=== PATIENT | male | born 1985 | race Two or more races ===

== ENCOUNTER 2025-09-08 02:37 | Inpatient (IN) | payer OTHER, SELFPAY ==
[~2025-09-08] VITALS: Ht 157.5 cm; Wt 80.0 kg
--- NOTE | 2025-09-08 02:59 | ED.PDOC ---
GI ASSESSMENT HPI Comments 40-year-old male who came to ER for generalized weakness/abdominal pain. Patient has been having recurrent episodes of epigastric abdominal pain for the past few months. Diagnosed with gastritis. pt has drinks alcohol. last drank alcohol was a week ago. Recurrence of abdominal pain with generalized weakness prompted patient to go to the ER Chief Complaint: General Weakness Time Seen by MD: 02:58 Reviewed Notes: Nurses Notes Allergies: Coded Allergies: No Known Drug Allergy (Verified Allergy, Unknown, 09/08/25) Information Source: Patient Mode of Arrival: Ambulatory Past Medical History PAST MEDICAL HISTORY: Denies Surgical History: Hernia Repair Family History Family History: Reviewed,noncontributory to illness Social History Smoker: Non-Smoker Alcohol: Occasionally Drugs: Denies Drug Use Lives In: Home Constitutional: reports: weakness; denies: chills, diaphoresis, fatigue, fever, malaise, sweats, others EENTM: denies: blurred vision, double vision, ear bleeding, ear discharge, ear drainage, ear pain, ear ringing, eye pain, eye redness, hearing loss, mouth pa in, mouth swelling, nasal discharge, nose bleeding, nose congestion, nose pain, photophobia, tearing, throat pain, throat swelling, voice changes, others Respiratory: denies: cough, hemoptysis, orthopnea, SOB at rest, shortness of breath, SOB with excertion, stridor, wheezing, others Cardiovascular: denies: chest pain, dizzy spells, diaphoresis, Dyspnea on exertion, edema, irregular heart beat, left arm pain, lightheadedness, palpitations, PND, syncope, others Gastrointestinal: reports: abdominal pain; denies: abdomen distended, blood streaked bowels, constipated, diarrhea, dysphagia, difficulty swallowing, hematemesis, melena, nausea, poor appetite, poor fluid intake, rectal bleeding, rectal pain, vomiting, others Genitourinary: denies: burning, dysuria, flank pain, frequency, hematuria, incontinence, penile discharge, penile sore, pain, testicle pain, testicle swelling, urgency, others Neurological: denies: dizziness, fainting, headache, left sided numbness, left sided weakness, numbness, paresthesia, pre-existing deficit, right sided numbness, right sided weakness, seizure, speech problems, tingling, tremors, weakness, others Musculoskeletal: denies: back pain, gout, joint pain, joint swelling, muscle pain, muscle stiffness, neck pain, others Integumetry: denies: bruises, change in color, change in hair/nails, dryness, laceration, lesions, lumps, rash, wounds, others Allergic/Immunocompromised: denies: Difficulty Healing, Frequent Infections, Hives, Itching, others Hematologic/Lymphatic: denies: anemia, blood clots, easy bleeding, easy bruising, swollen glands, others Endocrine: denies: excessive hunger, excessive sweating, excessive thirst, excessive urination, flushing, intolerance to cold, intolerance to heat, unexplained weight gain, unexplained weight loss, others Psychiatric: denies: anxiety, bipolar disorder, depression, hopeless, panic disorder, schizophrenia, sleepless, suicidal, others Physical Exam General Appearance: No Apparent Distress, Normal HEENT: Normal ENT Inspection, Pharynx Normal, TMs Normal Neck: Full Range of Motion, Non-Tender, Normal, Normal Inspection Respiratory: Chest Non-Tender, Lungs Clear, No Accessory Muscle Use, No Respira tory Distress, Normal Breath Sounds Cardiovascular: No Edema, No JVD, No Murmur, No Gallop, Normal Peripheral Pulses, Regular Rate/Rhythm Breast Exam: Deferred Gastrointestinal: Epigastric, No Organomegaly, No Pulsatile Mass, Normal Bowel Sounds, RUQ, Soft, Tenderness Genitalia: Deferred Pelvic: Deferred Rectal: Deferred Extremities: No calf tenderness, Normal capillary refill, Normal inspection, Normal range of motion, Non-tender, No pedal edema Musculoskeletal : Apperance: Normal Neurologic: Alert, anodiser II-XII nml as Tested, No Motor Deficits, Normal Affect, Normal Mood, No Sensory Deficits Cerebellar Function: Normal Reflexes: Normal Skin: Dry, Normal Color, Warm Lymphatic: No Adenopathy Was a procedure done? Was a procedure done?: No GI differential Dx Differential Diagnosis: Diverticular disease, Gastritis/PUD, Gastroenteritis, Hernia, Pancreatitis, UTI X-Ray, Labs, Meds, VS Vital Signs Date Time Temp Pulse Resp B/P (MAP) Pulse Ox O2 Delivery O2 Flow Rate FiO2 09/08/25 02:39 98.3 98 16 157/101 97 98.3 Lab Test 09/08/25 03:00 Range/Units White Blood Count Pending Red Blood Count Pending Hemoglobin Pending Hematocrit Pending Mean Corpuscular Volume Pending Mean Corpuscular Hemoglobin Pending Mean Corpuscular Hemoglobin Concent Pending Red Cell Distribution Width Pending Platelet Count Pending Mean Platelet Volume Pending Neutrophils (%) (Auto) Pending Lymphocytes (%) (Auto) Pending Monocytes (%) (Auto) Pending Basophils (%) (Auto) Pending Neutrophils # (Auto) Pending Lymphocytes # (Auto) Pending Monocytes # (Auto) Pending Sodium Level 145 136-145 mmol/L Potassium Level 3.7 3.5-5.1 mmol/L Chloride Level 102 98-107 mmol/L Carbon Dioxide Level 33 H 20-31 mmol/L Anion Gap 10 5-15 Blood Urea Nitrogen 14 9-23 mg/dL Creatinine 0.98 0.700-1.30 mg/dL Glomerular Filtration Rate Calc 101 >90 mL/min BUN/Creatinine Ratio 14.3 10.0-20.0 Serum Glucose 143 H 74-106 mg/dL Calcium Level 9.9 8.7-10.4 mg/dL Total Bilirubin 0.5 0.2-1.0 mg/dL Direct Bilirubin 0.2 <0.3 mg/dL Aspartate Amino Transferase (AST) 139 H 13-40 U/L Alanine Aminotransferase (ALT) 94 H 7-40 U/L Alkaline Phosphatase 143 H 46-116 U/L Total Protein 8.2 5.7-8.2 g/dL Albumin 4.7 3.2-4.8 g/dL Lipase Pending PROCEDURE: Gallbladder Ultrasound. Date: 09/08/2025 04:01 AM HISTORY: ruq pain COMPARISON: None TECHNIQUE: Multiple silva-scale and color flow images of the right upper quadrant were obtained. FINDINGS: Aorta and IVC: The aorta and IVC are patent and are normal in size. Pancreas: The pancreas is not well evaluated given the overlying bowel gas. Liver: The liver appears unremarkable. Gallbladder: Multiple mobile small stones are suspected in the gallbladder. There may be some sludge also in the gallbladder. No wall thickening is seen. The patient is not tender over the gallbladder. Bile ducts:The extrahepatic common bile duct measures 5 mm. Right kidney: The right kidney is normal in size. There is normal echogenicity of the right kidney and there is no evidence of hydronephrosis.Cortical thickness is well preserved. IMPRESSION: 1. Cholelithiasis without evidence of acute cholecystitis. Time of 1ST Reevaluation: 02:55 Reevaluation 1ST: Unchanged Time of 2ND Reevaluation: 04:59 Reevaluation 2ND: Resolved Patient Education/Counseling: Diagnosis, Treatment, Prognosis, Need For Follow Up Family Education/Counseling: Diagnosis, Treatment, Prognosis, Need For Follow Up Comments pt has biliary colic from cholelithiasis. he also has transaminitis and elevated AP. although his bili is not elevated, with his intractable pain, i am concerned about biliary ductal obstruction. his lipase is also mildly elevate. his WBC is elevated. i will cover him empirically for early cholecystitis. he will be admitted for further evaluation and treatments. SEPSIS Sepsis Screen Date sepsis recognized/suspect: Sep 08, 2025 Time Sepsis recognized/suspect: 242 Recent Procedure: No On Antibiotic Therapy: No Respiratory Rate >20: No Heart Rate >90: Yes Temp<36 C (96.8 F) or >38.3 C: No SBP <90 or MAP <65 mmHG: No New Acute Mental Status Change: No Is the patient on CPAP, BIPAP,: No Physician Orders Complete Blood Count (09/08/25 02:53) Basic Metabolic Panel (09/08/25 02:53) Hepatic Panel (09/08/25 02:53) Lipase (09/08/25 02:53) Gallbladder (09/08/25 02:53) Vital Signs Date Time Temp Pulse Resp B/P (MAP) Pulse Ox O2 Delivery O2 Flow Rate FiO2 09/08/25 02:39 98.3 98 16 157/101 97 98.3 Laboratory Tests Test 09/08/25 03:00 White Blood Count Pending Departure 1 Departure Time of Disposition: 05:07 Impression: Primary Impression: Cholelithiasis Additional Impressions: Biliary colic Transaminitis Intractable abdominal pain Disposition: ADMITTED INPATIENT Admit to: Med Surg Condition: Serious Discharged With: Self, Relative Critical Care Note Critical Care Time?: No Stability Stability form required: No Heart Score Heart Score: Heart Score Response (Comments) Value History N/A 0 EKG N/A 0 Age N/A 0 Risk Factors N/A 0 Troponin N/A 0 Total 0 I personally scribed for MARYANA DELEON MD ([email or web address]) on 09/08/25 at 02:59. Electronically submitted by Attila Molina ([facility]). I personally scribed for [facility]ON [facility] on 09/08/25 at 04:54. Electronically submitted by Attila Molina ([facility]). MARYANA DELEON MD Sep 08, 2025 02:59
[2025-09-08 03:27] LABS: Albumin 4.7 g/dL (3.2-4.8); Anion Gap 10 (5-15); BUN/Creatinine Ratio 14.3 (10.0-20.0); Bilirubin, Direct 0.2 mg/dL (<0.3); Bilirubin, Total 0.5 mg/dL (0.2-1.0); Blood Urea Nitrogen 14 mg/dL (9-23); Calcium 9.9 mg/dL (8.7-10.4); Chloride 102 mmol/L (98-107); Potassium 3.7 mmol/L (3.5-5.1); Total Protein 8.2 g/dL (5.7-8.2)
[2025-09-08 03:34] LABS: Alanine Aminotransferase 94 U/L (7-40); Alkaline Phosphatase 143 U/L (46-116); Carbon Dioxide 33 mmol/L (20-31); Glucose 143 mg/dL (74-106); Sodium 145 mmol/L (136-145)
[2025-09-08 03:37] LABS: Hemoglobin 15.1 g/dL (13.5-17.5); Nucleated Red Blood Cells % 0.0 %
[2025-09-08 03:41] LABS: Hematocrit 44.7 % (41.0-53.0); Mean Corpuscular Hemoglobin 29.1 pg (28.0-32.0); Mean Corpuscular Volume 85.8 fL (80.0-100.0)
[2025-09-08] MEDS: fentaNYL CITRATE 100 MCG/2 ML VL IM ONE (04:15)
--- NOTE | 2025-09-08 04:39 | DVH ---
MEDICAL RECORDS NUMBER: [id number] PROCEDURE: Gallbladder Ultrasound. Date: 09/08/2025 04:01 AM HISTORY: ruq pain COMPARISON: None TECHNIQUE: Multiple silva-scale and color flow images of the right upper quadrant were obtained. FINDINGS: Aorta and IVC: The aorta and IVC are patent and are normal in size. Pancreas: The pancreas is not well evaluated given the overlying bowel gas. Liver: The liver appears unremarkable. Gallbladder: Multiple mobile small stones are suspected in the gallbladder. There may be some sludge also in the gallbladder. No wall thickening is seen. The patient is not tender over the gallbladder. Bile ducts:The extrahepatic common bile duct measures 5 mm. Right kidney: The right kidney is normal in size. There is normal echogenicity of the right kidney and there is no evidence of hydronephrosis.Cortical thickness is well preserved. IMPRESSION: 1. Cholelithiasis without evidence of acute cholecystitis.
[2025-09-08 05:00] LABS: Lipase 63 U/L (12-53)
[2025-09-08] MEDS: ONDANSETRON ODT 4 MG TAB PO ONE (05:59)
[2025-09-08] MEDS: SODIUM CHLORIDE 0.9% 250 ML IV ONE (06:00)
[2025-09-08] MEDS: fentaNYL CITRATE 100 MCG/2 ML VL IV ONE (07:02)
[2025-09-08 08:35] VITALS: PULSE 80; RESP 18; O2SAT 99
[2025-09-08] MEDS: SODIUM CHLORIDE 0.9% 1,000 ML IV ONE (08:50)
[2025-09-08] MEDS: ONDANSETRON HCL 4 MG/2 ML VIAL IV ONE (08:50)
[2025-09-08] MEDS: MORPHINE SULFATE 4 MG/ML SYR/VIAL IV ONE (08:51)
[2025-09-08] MEDS ORDERED: ACETAMINOPHEN 325 MG TAB PO PRN (12:15)
--- NOTE | 2025-09-08 12:52 | DVH ---
CLINICAL INFORMATION: Rule out pancreatitis. No other clinical information provided. Indication for same day gallbladder ultrasound was right upper quadrant pain. TECHNIQUE: Axial CT images of the abdomen and pelvis were obtained without IV contrast. Coronal and sagittal reformatted images were obtained, reviewed, and stored. Evaluation of the parenchymal organs is limited without IV contrast. Evaluation of the bowel and mesentery is limited without oral contrast. All CT scans at this medical facility are performed using dose modulation techniques as appropriate to a performed exam including the following: Automated exposure control was utilized; adjustment of the MA and/or KV according to patient size; and use of iterative reconstruction technique. CTDIvol = 9.69 mGy DLP = 563.82 mGy-cm COMPARISON: None FINDINGS: Lung bases: Mild atelectasis in the lung bases. Liver: Grossly unremarkable in its noncontrast enhanced appearance. No abnormal density or focal lesion identified. Biliary: Partially contracted gallbladder. No definite calcified gallstones visualized on CT, although gallstones were seen on same-day ultrasound. Spleen: Unremarkable. Pancreas: Grossly unremarkable in its noncontrast enhanced appearance. No definite periappendiceal inflammatory changes are seen. Adrenal glands: Unremarkable. No mass. Kidneys: No hydronephrosis. No renal or ureteral calculi. Aorta/Vascular: No aneurysm or significant calcification. Lymph nodes: No mass or lymphadenopathy. Bowel/mesentery: No small bowel obstruction. No free air or free fluid. Appendix is visualized and appears unremarkable. Scattered colonic diverticula without adjacent inflammatory changes to suggest diverticulitis. Pelvic organs: Grossly unremarkable. Bladder: Unremarkable. No mass. Abdominal wall: No mass or hernia. Bones: No acute fracture or suspicious intraosseous lesion. IMPRESSION: 1. Partially contracted gallbladder. No definite calcified gallstones visualized on CT, although gallstones were seen on same-day ultrasound. 2. No definite peripancreatic inflammatory stranding to suggest acute pancreatitis, although correlation with clinical findings would be needed to exclude acute pancreatitis. 3. Additional nonacute findings as described above.
[2025-09-08] MEDS: SODIUM CHLORIDE 0.9% 1,000 ML IV SCH (13:11)
[2025-09-08] MEDS: MORPHINE SULFATE INJ 2 MG/ml SYRG IV PRN (13:23)
--- NOTE | 2025-09-08 13:31 | DVHHP2 ---
History of Present Illness History of Present Illness 40-year-old male who came to the ER for generalized weakness and recurrent episodes of epigastric abdominal pain over several months, previously labeled as gastritis. Today the pain became more persistent, prompting evaluation. He reports occasional alcohol use with his last drink one week ago. No vomiting today but has had intermittent nausea. No fevers or chills. No jaundice. No chest pain or shortness of breath. Ultrasound in the ED showed multiple gallstones without wall thickening and a CBD of [address] abdomen showed a partially contracted gallbladder without definite inflammatory changes. Labs significant for leukocytosis and elevated AST/ALT/ALP. Lipase is mildly elevated but not consistent with pancreatitis criteria. Pain improved slightly with ED medications but remains symptomatic. He was given ceftriaxone and metronidazole. Past Medical History: Denies Past Surgical History: Hernia repair Family History: Non-contributory Social History: Non-smoker, occasional alcohol, denies drug use, lives at home Allergies: NKDA Medications: None reported Review of Systems: Negative except as stated in HPI (weakness, abdominal pain). Denies fevers, chills, vomiting, diarrhea, chest pain, shortness of breath, dysuria, flank pain, or rash. Review of Systems Allergies: Coded Allergies: No Known Drug Allergy (Verified Allergy, Unknown, 09/08/25) Medications Current Medications Medications Dose Ordered Sig/Michael Route Start Time Stop Time Status Last Admin Dose Admin Sodium Chloride 1,000 ml @ 60 mls/hr [id number] IV 09/08/25 12:15 09/08/25 13:11 60 MLS/HR Acetaminophen 650 mg Q6HP PRN PO 09/08/25 12:15 Acetaminophen/ Hydrocodone Bitart 1 tab Q4HP PRN PO 09/08/25 12:15 Ondansetron HCl 4 mg Q4HP PRN IV 09/08/25 12:15 Morphine Sulfate 2 mg Q4HPRN PRN IV 09/08/25 12:15 09/08/25 13:23 2 MG Exam Vital Signs Vital Signs Date Time Temp Pulse Resp B/P (MAP) Pulse Ox O2 Delivery O2 Flow Rate FiO2 09/08/25 13:23 83 18 142/95 09/08/25 12:30 98.0 97 98.0 09/08/25 08:35 Room Air* 0 21 Exam General: No acute distress. HEENT: PERRLA, moist mucosa. Neck: Supple. Respiratory: Clear breath sounds, no wheezes or rales. Cardiovascular: Regular rhythm, normal rate. Abdomen: Soft, nondistended, RUQ tenderness without guarding or rebound. Bowel sounds present. Extremities: No edema. Neuro: Alert, oriented, no focal deficits. Skin: Warm, dry. Labs/Xrays Labs Test 09/08/25 03:00 Range/Units White Blood Count 19.5 H 4.4-10.8 10^3/uL Red Blood Count 5.21 4.5-5.90 10^6/uL Hemoglobin 15.1 13.5-17.5 g/dL Hematocrit 44.7 41.0-53.0 % Mean Corpuscular Volume 85.8 80.0-100.0 fL Mean Corpuscular Hemoglobin 29.1 28.0-32.0 pg Mean Corpuscular Hemoglobin Concent 33.9 32.0-36.0 g/dL Red Cell Distribution Width 13.8 11.8-14.3 % Platelet Count 480 H 140-450 10^3/uL Mean Platelet Volume 7.2 6.9-10.8 fL Neutrophils (%) (Auto) 90.1 H 37.0-80.0 % Lymphocytes (%) (Auto) 5.6 L 10.0-50.0 % Monocytes (%) (Auto) 3.7 0.0-12.0 % Eosinophils (%) (Auto) 0.3 0.0-7.0 % Basophils (%) (Auto) 0.3 0.0-2.0 % Neutrophils # (Auto) 17.6 H 1.6-8.6 10 ^3/uL Lymphocytes # (Auto) 1.1 0.4-5.4 10 ^3/uL Monocytes # (Auto) 0.7 0-1.3 10 ^3/uL Eosinophils # (Auto) 0.1 0-0.8 10 ^3/uL Basophils # (Auto) 0.1 0-0.2 10 ^3/uL Nucleated Red Blood Cells 0.0 % Sodium Level 145 136-145 mmol/L Potassium Level 3.7 3.5-5.1 mmol/L Chloride Level 102 98-107 mmol/L Carbon Dioxide Level 33 H 20-31 mmol/L Anion Gap 10 5-15 Blood Urea Nitrogen 14 9-23 mg/dL Creatinine 0.98 0.700-1.30 mg/dL Glomerular Filtration Rate Calc 101 >90 mL/min BUN/Creatinine Ratio 14.3 10.0-20.0 Serum Glucose 143 H 74-106 mg/dL Calcium Level 9.9 8.7-10.4 mg/dL Total Bilirubin 0.5 0.2-1.0 mg/dL Direct Bilirubin 0.2 <0.3 mg/dL Aspartate Amino Transferase (AST) 139 H 13-40 U/L Alanine Aminotransferase (ALT) 94 H 7-40 U/L Alkaline Phosphatase 143 H 46-116 U/L Total Protein 8.2 5.7-8.2 g/dL Albumin 4.7 3.2-4.8 g/dL Lipase 63 H 12-53 U/L SEPSIS Sepsis Screen Date sepsis recognized/suspect: Sep 08, 2025 Time Sepsis recognized/suspect: 834 Recent Procedure: No On Antibiotic Therapy: No Respiratory Rate >20: No Heart Rate >90: No Temp<36 C (96.8 F) or >38.3 C: No SBP <90 or MAP <65 mmHG: No New Acute Mental Status Change: No Is the patient on CPAP, BIPAP,: No Physician Orders Admit (09/08/25 12:09) Code Status (09/08/25 12:09) Vital Signs .PER UNIT PROTOCOL (09/08/25 12:09) Review Orders With Adm. (09/08/25 12:09) Sodium Chloride 0.9% (09/08/25 12:15) Acetaminophen Tablet (Tylenol Tablet) (09/08/25 12:15) Notify Md Of Changes From Base (09/08/25 12:09) Advance Directive (09/08/25 12:09) Ct Ab Pel Wo Con-No Oral Or Iv (09/08/25 12:09) Urinalysis (09/08/25 12:09) Blood Culture (09/08/25 12:09) Patient Condition (09/08/25 12:09) Allergies (09/08/25 12:09) Hydrocodone-Acet 5/325mg Tab ([place] 5/32 (09/08/25 12:15) Ondansetron Hcl (Zofran) (09/08/25 12:15) Drug Screen (09/08/25 12:09) Hemoglobin A1c (09/08/25 12:09) Morphine Sulfate Injection (09/08/25 12:15) Oxygen By Nasal Cannula (09/08/25 12:09) Stat Ekg For Chest Pain (09/08/25 12:09) Notify Of Changes From Base (09/08/25 12:09) Transportation Sales Consultant For 24 Hours (09/08/25 12:09) Emergency Dysrhythmia Protocol (09/08/25 12:09) Rhythm Strips Once Every Shift (09/08/25 12:09) Acute Hepatitis Panel (09/08/25 13:24) Blood Alcohol (09/08/25 13:24) Vital Signs Date Time Temp Pulse Resp B/P (MAP) Pulse Ox O2 Delivery O2 Flow Rate FiO2 09/08/25 13:23 83 18 142/95 09/08/25 12:30 98.0 88 18 145/94 (111) 97 98.0 09/08/25 09:58 86 13 150/105 09/08/25 09:57 86 18 151/105 (120) 99 09/08/25 08:51 80 18 145/107 09/08/25 08:35 80 18 99 Room Air* 0 21 09/08/25 08:32 98.5 80 18 145/107 (120) 99 98.5 09/08/25 07:02 132/101 Laboratory Tests Test 09/08/25 03:00 White Blood Count 19.5 10^3/uL (4.4-10.8) H Medications Medications Dose Ordered Sig/Michael Route Start Time Stop Time Status Last Admin Dose Admin Fentanyl Citrate 25 mcg ONCE ONCE IM 09/08/25 03:00 09/08/25 03:03 DC 09/08/25 04:15 25 MCG Fentanyl Citrate 25 mcg ONCE ONCE IV 09/08/25 05:15 09/08/25 05:22 DC 09/08/25 07:02 25 MCG Morphine Sulfate 2 mg Q4HPRN PRN IV 09/08/25 12:15 09/08/25 13:23 2 MG Morphine Sulfate 4 mg ONCE ONCE IV 09/08/25 08:45 09/08/25 08:47 DC 09/08/25 08:51 4 MG Ondansetron HCl 4 mg ONCE ONCE IV 09/08/25 08:45 09/08/25 08:47 DC 09/08/25 08:50 4 MG Ondansetron HCl 4 mg ONCE ONCE PO 09/08/25 03:00 09/08/25 03:03 DC 09/08/25 05:59 4 MG Sodium Chloride 250 ml @ 1,000 mls/hr Q15M ONCE IV 09/08/25 05:15 09/08/25 05:29 DC 09/08/25 06:00 1,000 MLS/HR Sodium Chloride 1,000 ml @ 60 mls/hr [id number] IV 09/08/25 12:15 09/08/25 13:11 60 MLS/HR Sodium Chloride 1,000 ml @ 1,000 mls/hr Q1H ONCE IV 09/08/25 08:45 09/08/25 09:44 DC 09/08/25 08:50 1,000 MLS/HR Assessment/Plan Assessment/Plan # Biliary colic The patient has symptomatic cholelithiasis with persistent RUQ pain, leukocytosis, and stones on ultrasound. Although imaging does not confirm acute cholecystitis, his clinical presentation warrants treatment as early biliary disease. Continuing ceftriaxone and metronidazole. giving IV fluids, and monitoring clinical progression. Repeat abdominal exam in the morning and trend CBC. # Rule out acute cholecystitis Imaging is equivocal but clinical suspicion remains due to RUQ tenderness, leukocytosis, and transaminitis. Surgical evaluation ordered also for possible cholecystectomy, possible HIDA scan vs MRCP if exams worsen or if he fails conservative management. # Transaminitis Likely reactive to biliary disease but requires monitoring. Hepatic function panel ordered for tomorrow and acute hepatitis panel. Continue to trend AST/ALT/ALP. Avoid hepatotoxic agents. No evidence of biliary obstruction at this time (bili normal, CBD 5 mm). # Hyperglycemia Mild elevation likely stress related. Will monitor POC glucose and provide sliding scale as needed. Case discussed with Dr Adams Full code Plan discussed with: Patient (rn), Other My Orders Orders - GABY BURNETTE Procedure Category Date Status Time Admit ADMIT 09/08/25 Transmitted 12:09 Code Status CODE 09/08/25 Transmitted 12:09 Vital Signs ASHIA 09/08/25 In Process 12:09 Review Orders With ASHIA 09/08/25 In Process Adm. 12:09 Sodium Chloride 0.9% PHA 09/08/25 In Process 12:15 Acetaminophen Tablet PHA 12/7/25 In Process (Tylenol Tablet) 12:15 Notify Of Changes [facility] 09/08/25 In Process From Base 12:09 Advance Directive ASHIA 09/08/25 In Process 12:09 Ct Ab Pel Wo Con-No CT 09/08/25 Resulted Oral Or Iv 12:09 Urinalysis LAB 09/08/25 Logged 12:09 Blood Culture TEDDY 09/08/25 Logged 12:09 Patient Condition ORDERS 09/08/25 Transmitted 12:09 Allergies ASHIA 09/08/25 In Process 12:09 Hydrocodone-Acet PHA 09/08/25 In Process 5/325mg Tab ([place] 12:15 Ondansetron Hcl PHA 09/08/25 In Process (Zofran) 12:15 Drug Screen LAB 09/08/25 Logged 12:09 Hemoglobin A1c LAB 09/08/25 In Process 12:09 Morphine Sulfate PHA 09/08/25 In Process Injection 12:15 Oxygen By Nasal RT 09/08/25 Transmitted Cannula 12:09 Stat Ekg For Chest ASHIA 09/08/25 In Process Pain 12:09 Notify Of Changes [facility] 09/08/25 In Process From Base 12:09 Transportation Sales Consultant For [facility] 09/08/25 In Process 24 Hours 12:09 Emergency Dysrhythmia ASHIA 09/08/25 In Process Protocol 12:09 Rhythm Strips Once [facility] 09/08/25 In Process Every Shift 12:09 Acute Hepatitis Panel LAB 09/08/25 In Process 13:24 Blood Alcohol LAB 09/08/25 In Process 13:24 Date of Service: Sep 09, 2025 Billing Provider: LUCITA ADAMS MD Common Visit Codes: 69100-[id number] INP/OBS CARE (HIGH) Secondary Visit Codes: [id number]-[id number] CARE PLAN 30 MINUTES GABY BURNETTE Sep 08, 2025 13:31
[2025-09-08 18:38] LABS: Urine Protein, UAD Negative (Negative)
[2025-09-08 18:41] LABS: Cocaine Screen, Urine Neg (NEGATIVE)
[2025-09-08 18:42] LABS: Opiate Scree,Urine Pos (NEGATIVE)
[2025-09-08 18:54] LABS: Amphetamine Screen, Urine Neg (NEGATIVE); Barbiturate Scree,Urine Neg (NEGATIVE); Benzodiazephine Screen, Urine Neg (NEGATIVE); Cannabinoid Screen, Urine Neg (NEGATIVE); Phencyclidine Screen, Urine Neg (NEGATIVE)
[2025-09-08 20:00] VITALS: RESP 18
[2025-09-08 21:00] VITALS: BP 137/100; PULSE 82; RESP 18; TEMP 98; O2SAT 95
[2025-09-08] MEDS: MORPHINE SULFATE 4 MG/ML SYR/VIAL IV PRN (23:00)
[2025-09-09] VITALS (7 sets, daily range): BP systolic 125–140; BP diastolic 81–96; PULSE 72–95; RESP 14–18; TEMP 97.8–98.8; O2SAT 93–98
[2025-09-09] MEDS: HYDROcodone-ACET 5/325MG TAB PO PRN (01:09)
[2025-09-09 06:02] LABS: Hematocrit 41.8 % (41.0-53.0); Hemoglobin 14.2 g/dL (13.5-17.5); Mean Corpuscular Hemoglobin 29.3 pg (28.0-32.0); Mean Corpuscular Volume 85.9 fL (80.0-100.0); Nucleated Red Blood Cells % 0.0 %
[2025-09-09 06:20] LABS: Albumin 3.8 g/dL (3.2-4.8); Anion Gap 11 (5-15); BUN/Creatinine Ratio 9.9 (10.0-20.0); Calcium 8.9 mg/dL (8.7-10.4); Carbon Dioxide 29 mmol/L (20-31); Chloride 104 mmol/L (98-107); Glucose 86 mg/dL (74-106); Sodium 144 mmol/L (136-145); Total Protein 6.6 g/dL (5.7-8.2)
[2025-09-09 06:21] LABS: Alanine Aminotransferase 768 U/L (7-40); Alkaline Phosphatase 221 U/L (46-116); Bilirubin, Total 2.4 mg/dL (0.2-1.0); Blood Urea Nitrogen 7 mg/dL (9-23); Potassium 3.2 mmol/L (3.5-5.1)
[2025-09-09] MEDS: PANTOPRAZOLE 40 MG/10 ML VIAL INJ IV SCH (09:17)
[2025-09-09] MEDS: POTASSIUM EFFERVESENT TAB 25 MEQ PO ONE (09:25)
[2025-09-09 11:32] LABS: Hepatitis B Surface Antigen Negative (Negative)
[2025-09-09 11:45] LABS: Hepatitis C Antibody Negative (Negative)
[2025-09-09] MEDS: D5W/SOD CHL 0.45%/KCL 20MEQ 1,000 ML IV SCH (12:13)
[2025-09-09] MEDS: HYDROmorphone HCL 2 MG/ML VL/or syr IV PRN (12:59)
--- NOTE | 2025-09-09 13:54 | DVHPNRES ---
Progress Note Date Seen: Sep 09, 2025 Resident Creating Document: MICHEAL LARSON Medical Necessity Reason Pt with a Central, PICC or Fol: No Subjective Review of Systems Patient is a 40-year-old male with no significant past medical history, presented to [facility] ED with complaint of abdominal pain. The pain is described as sharp, constant, and rated 7/10. It began approximately six months ago, around the time he was diagnosed with a gastric ulcer at [facility]. The pain is localized to the right upper quadrant, radiating to the right lower quadrant, and has progressively worsened. He reports that the pain becomes more severe after greasy meals and is occasionally associated with dizziness. He reports occasional alcohol use, with his last drink one week ago. No vomiting today, though he has experienced intermittent nausea. He denies fevers, chills, jaundice, chest pain, or shortness of breath. No fevers or chills. No jaundice. No chest pain or shortness of breath. Past Surgical History: Hernia repair Family History: Non-contributory Social History: Non-smoker, occasional alcohol, denies drug use, lives at home Allergies: NKDA Medications: None reported Patient seen and examined at bedside. Patient is alert and oriented to time, place person and responding to all questions. Eyes: No Pain, No Vision change, No Conjunctivae inflammation, No Eyelid inflammation, No Other, No Redness ENT: No Ear pain, No Ear discharge, No Nose pain, No Nose discharge, No Nose congestion, No Mouth pain, No Mouth swelling, No Throat pain, No Throat swelling, No Other Cardiovascular: No Chest Pain, No Palpitations, No Orthopnea, No Paroxysmal No Dyspnea, No Edema, No Lt Headedness, No Other Respiratory: No Cough, No Dry, No Shortness of breath, No SOB with exertion, No Wheezing, No Hemoptysis, No Pleuritic Pain, No Sputum, No Other Gastrointestinal: No Nausea, No Vomiting, Abdominal Pain, No Diarrhea, No Constipation, No Melena, No Hematochezia, No Other Genitourinary: No Dysuria, No Frequency, No Incontinence, No Hematuria, No Retention, No Other Musculoskeletal: No other, No neck pain, No shoulder pain, No arm pain, No back pain, No hand pain, No leg pain, No foot pain Skin: No Rash, No Lesions, No Jaundice, No Bruising, No Other Objective vital signs Vital Sign Date Time Temp Pulse Resp B/P (MAP) Pulse Ox O2 Delivery O2 Flow Rate FiO2 09/09/25 12:59 72 15 133/96 09/09/25 09:00 98.1 95 98.1 09/09/25 08:00 Room Air* 0 21 Total Intake and Output 09/08/25 09/08/25 09/09/25 15:00 23:00 07:00 Intake Total 1000 ml 240 ml 850 ml Output Total 900 ml Balance 1000 ml 240 ml -50 ml medications Current Medications Medications Dose Ordered Sig/Michael Route Start Time Stop Time Status Last Admin Dose Admin Acetaminophen 650 mg Q6HP PRN PO 09/08/25 12:15 Ondansetron HCl 4 mg Q4HP PRN IV 09/08/25 12:15 Ceftriaxone Sodium 50 ml @ 100 mls/hr DAILY@09 IV 09/09/25 01:15 09/09/25 09:17 100 MLS/HR Metronidazole 100 ml @ 100 mls/hr Q8HR IV 09/09/25 01:15 09/09/25 05:30 100 MLS/HR Pantoprazole Sodium 40 mg BID IV 09/09/25 10:00 09/09/25 09:17 40 MG Potassium Chloride/Dextrose/ Sod Cl 1,000 ml @ 100 mls/hr Q10H IV 09/09/25 11:15 09/09/25 12:13 100 MLS/HR Hydromorphone HCl 0.5 mg Q4HPRN PRN IV 09/09/25 12:45 09/09/25 12:59 0.5 MG Examination General Appearance: Cooperative. Well developed. Well nourished. NAD Head Exam: Normal inspection Neck Exam: Normal inspection. Non-tender. Normal alignment Pulmonary/Respiratory: Chest non-tender. Clear bilateral breath sounds, no crackles, no wheezing. Cardiovascular/Chest: Regular rate and rhythm. No murmurs. No JVD. Peripheral Pulses: 2+ Radial (R). 2+ Radial (L). 2+ Pedal (R). 2+ Pedal (L) Abdominal Exam: positive Oneill sign. RUQ, RLQ tenderness. Normal bowel sounds. Soft. normal abdomen, no visible veins, Nontender. No hepatospenomegaly. No masses Ankle Exam: Negative ankle edema Lower extremities: Negative lower extremity edema Neuro/Mental Status: A&O x4. Coherent. Thoughts/Psych: Normal thought pattern. Appropriate mood and affect. Good judgement and insight Skin Exam: Normal inspection. Normal color. Warm. Dry laboratory and microbiology Laboratory Tests 09/09/25 04:53 Test 09/09/25 04:53 Range/Units Serum Glucose 86 74-106 mg/dL Labs and/or images reviewed: Labs reviewed by me, Image(s) reviewed by me Problem List/Assessment/Plan Problem List/Assessment/Plan # Rule out Choledocholithiasis # Symptomatic Cholelithiasis # Questionable Acute cholecystitis # Sepsis due to above # Transaminitis # Obesity # Gastric ulcer MRCP: Filling defect in the distal common bile duct, suspected small gallstone. Common bile duct is near the upper limits of normal in diameter. Cholelithiasis. Abdomen/Pelvis CT: Partially contracted gallbladder. No definite calcified gallstones visualized on CT, although gallstones were seen on same-day ultrasound. No definite peripancreatic inflammatory stranding to suggest acute pancreatitis, although correlation with clinical findings would be needed to exclude acute pancreatitis. Gall Bladder Ultrasound: Cholelithiasis without evidence of acute cholecystitis. NPO at midnight Surgical consult: Tentative OR tomorrow for laparoscopic cholecystectomy with possible IOC Continue NPO, IV Pantoprazole and empiric IV antibiotics (Ceftriaxone and metronidazole Diet: NPO PUD prophylaxis: Protonix 40mg DVT prophylaxis: SCDs Goals of care: Full code Plan discussed with patient Plan discussed with Dr. Rodríguez Plan discussed with: Patient, Other (RN) My Orders My Orders Orders - MICHEAL LARSON Procedure Category Date Status Time Mrcp Mri MRI 09/09/25 Logged 11:14 *[facility] CONS 09/09/25 Transmitted 13:49 Complete Blood Count LAB 09/10/25 Verified 04:00 Comprehensive LAB 09/10/25 Verified Metabolic Panel 04:00 Visit Coding STANDARD RES Billing Provider: PUJA RODRÍGUEZ MD Date of Service if different f: Sep 09, 2025 Common Visit Codes: [id number] INP/OBS CARE(HIGH) MICHEAL LARSON Sep 09, 2025 13:54 BRISEYDA CHI RESIDENT Sep 09, 2025 17:51
--- NOTE | 2025-09-09 14:32 | DVH ---
CLINICAL INFORMATION: Cholelithiasis. Rule out common bile duct stone. TECHNIQUE: Multisequence multiplanar MRI images of the abdomen were obtained without IV contrast. Heavily T2-weighted MRCP images were obtained. 3D MRCP images were created. COMPARISON: CT dated 09/08/2025. Ultrasound dated 09/08/2025. FINDINGS: Multiple small , spleen, pancreas, adrenal glands, and kidneys appear grossly unremarkable on limited noncontrast enhanced images. No abdominal aortic aneurysm. No other significant abnormality identified. gallstones visualized in the gallbladder. Common bile duct measures up to 6 mm in diameter, near the upper limits of normal. There is a filling defect in the distal the livercommon bile duct on the MRCP images, suspected small gallstone. IMPRESSION: 1. Filling defect in the distal common bile duct, suspected small gallstone. Common bile duct is near the upper limits of normal in diameter. 2. Cholelithiasis.
--- NOTE | 2025-09-09 15:34 | DVHINCON2 ---
Consultation - Surgical Date Seen: Sep 09, 2025 Referring Physician Reason for Consultation Cholecystitis History of Present Illness History of Present Illness Mr. Reza is a 40-year-old male who presented to the hospital with 2 days of right upper quadrant abdominal pain associated with nausea and vomiting. He has had this pain episodes in the past, the 1st 1 being in January and since then he has been having occasional minor right upper quadrant pain. Denies fevers, chills, changes in urinary or stooling habits, acholic stools. Past Medical/Surgical History Past Medical/Surgical History Past medical history denies Past surgical history right inguinal hernia repair Family and Social History Family and Social History Family history noncontributory ETOH/T Ob/drugs denies Allergies and medications Allergies: Coded Allergies: No Known Drug Allergy (Verified Allergy, Unknown, 09/08/25) Review of systems Review of Systems: Deferred Examination Vital signs Vital Signs Date Time Temp Pulse Resp B/P (MAP) Pulse Ox O2 Delivery O2 Flow Rate FiO2 09/09/25 13:00 98.0 72 14 133/96 (108) 95 98.0 09/09/25 08:00 Room Air* 0 21 Medications Current Medications Medications (Trade) Dose Ordered Sig/Michael Route PRN Reason Start Time Stop Time Status Last Admin Morphine Sulfate 2 mg Q4HPRN PRN IV SEVERE PAIN (7-10 PAIN SCALE) 09/08/25 22:45 09/09/25 12:44 DC 09/08/25 23:00 Ceftriaxone Sodium 50 ml @ 100 mls/hr DAILY@09 IV 09/09/25 01:15 09/09/25 09:17 Metronidazole 100 ml @ 100 mls/hr Q8HR IV 09/09/25 01:15 09/09/25 14:51 Pantoprazole Sodium (Protonix) 40 mg BID IV 09/09/25 10:00 09/09/25 09:17 Potassium Chloride/Dextrose/ Sod Cl 1,000 ml @ 100 mls/hr Q10H IV 09/09/25 11:15 09/09/25 12:13 Hydromorphone HCl (Dilaudid Injection) 0.5 mg Q4HPRN PRN IV SEVERE PAIN (7-10 PAIN SCALE) 09/09/25 12:45 09/09/25 12:59 Laboratory Labs Test 09/09/25 04:53 09/08/25 18:10 09/08/25 03:00 Range/Units White Blood Count 6.5 # 4.4-10.8 10^3/uL Red Blood Count 4.86 4.5-5.90 10^6/uL Hemoglobin 14.2 13.5-17.5 g/dL Hematocrit 41.8 41.0-53.0 % Mean Corpuscular Volume 85.9 80.0-100.0 fL Mean Corpuscular Hemoglobin 29.3 28.0-32.0 pg Mean Corpuscular Hemoglobin Concent 34.1 32.0-36.0 g/dL Red Cell Distribution Width 13.8 11.8-14.3 % Platelet Count 391 140-450 10^3/uL Mean Platelet Volume 7.4 6.9-10.8 fL Neutrophils (%) (Auto) 66.9 37.0-80.0 % Lymphocytes (%) (Auto) 21.8 10.0-50.0 % Monocytes (%) (Auto) 8.6 0.0-12.0 % Eosinophils (%) (Auto) 2.2 0.0-7.0 % Basophils (%) (Auto) 0.5 0.0-2.0 % Neutrophils # (Auto) 4.3 1.6-8.6 10 ^3/uL Lymphocytes # (Auto) 1.4 0.4-5.4 10 ^3/uL Monocytes # (Auto) 0.6 0-1.3 10 ^3/uL Eosinophils # (Auto) 0.1 0-0.8 10 ^3/uL Basophils # (Auto) 0 0-0.2 10 ^3/uL Nucleated Red Blood Cells 0.0 % Sodium Level 144 136-145 mmol/L Potassium Level 3.2 L 3.5-5.1 mmol/L Chloride Level 104 98-107 mmol/L Carbon Dioxide Level 29 20-31 mmol/L Anion Gap 11 5-15 Blood Urea Nitrogen 7 L 9-23 mg/dL Creatinine 0.71 0.700-1.30 mg/dL Glomerular Filtration Rate Calc 120 >90 mL/min BUN/Creatinine Ratio 9.9 L 10.0-20.0 Serum Glucose 86 74-106 mg/dL Calcium Level 8.9 8.7-10.4 mg/dL Total Bilirubin 2.4 H 0.2-1.0 mg/dL Aspartate Amino Transferase (AST) 522 H 13-40 U/L Alanine Aminotransferase (ALT) 768 H 7-40 U/L Alkaline Phosphatase 221 H 46-116 U/L Total Protein 6.6 5.7-8.2 g/dL Albumin 3.8 3.2-4.8 g/dL Urine Color Yellow Yellow Urine Clarity Clear Clear Urine pH 5.5 5.0-9.0 Urine Specific [place] 1.012 1.001-1.035 Urine Protein Negative Negative Urine Ketones Negative Negative Urine Blood Negative Negative /uL Urine Nitrite Negative Negative Urine Bilirubin Negative Negative Urine Urobilinogen Normal Negative mg/dL Urine Leukocyte Esterase Negative Negative /uL Urine RBC <1 0 - 3 /hpf Urine Microscopic WBC < 1 0-3 /HPF Urine Squamous Epithelial Cells Few <5 /hpf Urine Bacteria None seen None Seen /hpf Urine Glucose Normal Normal mg/dL Urine Opiates Screen Pos NEGATIVE Urine Fentanyl Screen Pos NEGATIVE Urine Barbiturates Screen Neg NEGATIVE Urine Phencyclidine Screen Neg NEGATIVE Urine Amphetamines Screen Neg NEGATIVE Urine Benzodiazepines Screen Neg NEGATIVE Urine Cocaine Screen Neg NEGATIVE Urine Cannabinoids Screen Neg NEGATIVE Hemoglobin A1c 5.5 <5.7 % A1C Direct Bilirubin 0.2 <0.3 mg/dL Lipase 63 H 12-53 U/L Plasma/Serum Blood Alcohol < 3.0 <10 mg/dL Hepatitis A IgM Antibody Negative Hepatitis B Surface Antigen Negative Negative Hepatitis B Core IgM Antibody Negative Negative Hepatitis C Antibody Negative Negative Microbiology Date/Time Source Procedure Growth Status 09/08/25 14:41 Blood Blood Culture - Preliminary NO GROWTH AFTER 24 HOURS OF INCUBATION. Resulted Examination: GENERAL:Normal (AAO x3), HEENT:Normal (No icterus, neck supple), LUNGS:Normal (Nonlabored breathing with symmetric expansion), ABDOMEN:Normal (Nondistended, soft, depressible, epigastric and right upper quadrant tenderness, no rebound, no guarding), SKIN:Normal (No jaundice) Problem List/Assessment/Plan Problems: (1) Choledocholithiasis with acute cholecystitis Assessment and Plan Mr. Reza is a 40-year-old male who presented with the acute cholecystitis, complicated by choledocholithiasis. Patient has a MRCP showing a distal CBD stone with elevation of total bilirubin level and transaminitis from yesterday to today. Ultrasound shows gallbladder full of stones. CT pretty unremarkable. Patient will benefit from laparoscopic cholecystectomy and possible ERCP. Procedure, risks, benefits, complications, and alternatives were discussed with the patient. He would like to proceed with the surgery. I explained to the patient that he might need transfer for ERCP prior to the surgery if transaminitis continues to increase tomorrow morning. 1. Tentative OR tomorrow for laparoscopic cholecystectomy with possible IOC 2. If transaminitis continues to increase along with bilirubin levels, patient w ill need transfer for ERCP prior to gallbladder surgery. 3. NPO at midnight 4. A.m. labs Plan discussed with Plan discussed with: Patient, Spouse Visit Coding Surgery Date of Service if different f: Sep 09, 2025 Billing Provider: RYLEY HAWLEY MD Surgery Visit Codes: [id number] - INP CONSULT <110 MIN RYLEY HAWLEY MD Sep 09, 2025 15:34
[2025-09-09] MEDS: ONDANSETRON HCL 4 MG/2 ML VIAL IV PRN (18:01)
[2025-09-09 19:27] LABS: INR 1.09 (0.9-1.15); Partial Thromboplastin Time 25.2 SEC (24.5-34.5); Prothrombin Time 11.5 sec (9.3-11.8)
[2025-09-10] VITALS (7 sets, daily range): BP systolic 106–177; BP diastolic 77–108; PULSE 66–94; RESP 14–21; TEMP 97.8–98; O2SAT 96–100
[2025-09-10 06:29] LABS: Hematocrit 39.6 % (41.0-53.0); Hemoglobin 13.6 g/dL (13.5-17.5); Mean Corpuscular Hemoglobin 29.5 pg (28.0-32.0); Mean Corpuscular Volume 86.1 fL (80.0-100.0); Nucleated Red Blood Cells % 0.3 %
[2025-09-10 06:41] LABS: Albumin 3.9 g/dL (3.2-4.8); Anion Gap 8 (5-15); BUN/Creatinine Ratio 8.3 (10.0-20.0); Calcium 9.2 mg/dL (8.7-10.4); Chloride 103 mmol/L (98-107); Glucose 95 mg/dL (74-106); Sodium 143 mmol/L (136-145); Total Protein 6.8 g/dL (5.7-8.2)
[2025-09-10 06:42] LABS: Alanine Aminotransferase 590 U/L (7-40); Alkaline Phosphatase 274 U/L (46-116); Blood Urea Nitrogen 7 mg/dL (9-23); Carbon Dioxide 32 mmol/L (20-31); Potassium 3.3 mmol/L (3.5-5.1)
[2025-09-10 06:49] LABS: Bilirubin, Direct 1.4 mg/dL (<0.3); Bilirubin, Total 2.3 mg/dL (0.2-1.0)
[2025-09-10 07:00] LABS: Lipase 40 U/L (12-53)
--- NOTE | 2025-09-10 08:03 | DVH ---
INDICATION: pre-op/pain TECHNIQUE: Frontal view of the chest. COMPARISON: None FINDINGS: . The heart and mediastinal contours are grossly unremarkable. There is no evidence of pleural disease. The lungs are clear. The bony structures of the chest are intact without fracture. IMPRESSION: 1. No evidence of acute disease.
--- NOTE | 2025-09-10 08:20 | ECG ---
[facility] Test Date: 2025-09-10 Test Time: 05:04:42 Pat Name: GLADYS JEAN Department: Room: 0212 B Gender: M Outpatient Psychiatrist: CHARLES : 1985 Requested By: MICHEAL YOU Order Number: [id number] Reading MD: Marvin Rocha Measurements Intervals [place] Rate: 70 P: 44 MS: 151 QRS: 63 QRSD: 80 T: 24 QT: 379 QTc: 409 Interpretive Statements Sinus rhythm Electronically Signed On 09-12-2025 18:26:35 PST by Marvin Rocha Please click the below link to view image of tracing.
[2025-09-10] MEDS: CELECOXIB 100 MG CAP PO ONE (09:29)
[2025-09-10] MEDS: GABAPENTIN 300 MG CAP PO ONE (09:29)
[2025-09-10] MEDS: ACETAMINOPHEN IV 1000 MG/100ML (10MG/ML) IV ONE (09:29)
[2025-09-10] MEDS ORDERED: fentaNYL CITRATE 100 MCG/2 ML VL ONE ×2 (09:30→12:42)
[2025-09-10] MEDS ORDERED: LIDOCAINE 2% (LOCAL ANESTH.) PF 5ml SDV ONE (09:30)
[2025-09-10] MEDS ORDERED: KETOROLAC TROMETH 30 MG/ML 1ML VIAL ONE (09:30)
[2025-09-10] MEDS ORDERED: SUGAMMADEX 200mg/2ml Vial (100MG/ML) IV ONE (09:30)
[2025-09-10] MEDS ORDERED: KETAMINE 50mg/ML 1ml syringe ONE (09:30)
[2025-09-10] MEDS ORDERED: ROCURONIUM 10MG/ML 10ML VIAL IV ONE (09:30)
[2025-09-10] MEDS ORDERED: GLYCOPYRROLATE 0.2 MG/ML 1ML VIAL ONE (09:30)
[2025-09-10] MEDS ORDERED: PROPOFOL 10 MG/ML 20 ML IV ONE (09:30)
[2025-09-10] MEDS ORDERED: ONDANSETRON HCL 4 MG/2 ML VIAL ONE (09:30)
[2025-09-10] MEDS ORDERED: GLUCAGON EMERG KIT 1mg/1ml IV ONE (10:30)
[2025-09-10] MEDS: GLUCAGON EMERG KIT 1mg/1ml IV ONE (11:36)
[2025-09-10] MEDS: BUPIVACAINE 0.25% INJ 50ML VIAL ONE (12:01)
[2025-09-10] MEDS ORDERED: ONDANSETRON HCL 4 MG/2 ML VIAL IV PRN (12:15)
[2025-09-10] MEDS ORDERED: HYDROmorphone HCL 2 MG/ML VL/or syr IV PRN (12:15)
[2025-09-10] MEDS ORDERED: NALOXONE HCL 0.4 MG/ML VIAL IV PRN (12:15)
[2025-09-10] MEDS ORDERED: FLUMAZENIL 0.1 MG/ML INJ 10ML MDV IV PRN (12:15)
[2025-09-10] MEDS ORDERED: hydrALAZINE HCL 20 MG/ML VL IV PRN (12:15)
--- NOTE | 2025-09-10 12:29 | DVH ---
Date: 09/10/2025 11:02 AM Examination: XY KUB ABDOMEN SINGLE VIEW History: CHOLANGIOGRAM COMPARISON: None TECHNIQUE: Frontal views of the abdomen was obtained. FINDINGS: Bowel gas pattern is unremarkable. The lung bases are unremarkable. No acute osseous abnormality identified. IMPRESSION: Nonobstructive bowel gas pattern. Opacification of the common bile duct and intrahepatic ducts.
[2025-09-10] MEDS: fentaNYL CITRATE 100 MCG/2 ML VL IV PRN (12:43)
[2025-09-10] MEDS ORDERED: HYDROcodone-ACET 10/325MG TAB PO PRN (12:45)
[2025-09-10] MEDS ORDERED: HYDROcodone-ACET 5/325MG TAB PO PRN (12:45)
--- NOTE | 2025-09-10 13:04 | DVHOP2 ---
Operative Report - 2 Report Details Date: 09/10/25 Preop Diagnosis: Acute cholecystitis with choledocholithiasis Postop Diagnosis: Same Surgeon: Cm Parson MD Anesthesiologist: Reji Wilson CRNA Anesthesia: General Consent: The patient was informed of the risks and benefits of the procedure. These include but are not limited to complications of anesthesia, postoperative infection, incomplete relief of symptoms, recurrence of symptoms, damage to blood vessels, nerves and tendons, deep venous thrombosis, pulmonary embolism and possible need for repeat surgery in the future. Complications: none Estimated Blood Loss: 10ml Findings: Gallbladder with chronic inflammatory changes, thick overlying peritoneum, thick cystic duct with lots of tiny stones within its lumen, choledocholithiasis evidenced by cholangiogram. Indications for Surgery: Acute cholecystitis with choledocholithiasis Name of Procedure Performed Laparoscopic cholecystectomy and intraoperative cholangiogram Procedure Details Procedure Details: Upon arriving to the operating room the patient was transferred to the operating table and placed in the supine position with arms extended. General endotracheal anesthesia was induced. Time-out was observed. Patient was then prepped and draped in the standard sterile surgical fashion with chlorhexidine. I then proceeded to make a curvilinear incision below the belly button and carried the dissection down to fascia. Once at the fascia I grasped the umbilical stalk with a Deidre clamp and walked it down to its base. Once at the base of the umbilical stalk I gained entry into the peritoneal cavity utilizing Shoemaker technique. I then placed a fascial retention stitch of 0 Vicryl in [id number] fashion. I then introduced the Shoemaker cannula and insufflated the peritoneal cavity to 15 mmHg with toleration. I then introduced a 10 mm 30 degree laparoscope into the peritoneal cavity, surveyed the entry site, no injuries noted. Patient was then placed in the reverse Trendelenburg [id number] position. I then placed 3 additional 5 mm working ports at the epigastric area, right midclavicular subcostal area, and right flank area. I then directed my attention to the liver and gallbladder. I grasped the gallbladder at its fundus and retracted cephalad and towards the right shoulder. A 2nd retractor was used to grab the gallbladder at the infundibulum and retracted laterally. The gallbladder appeared fairly normal with thick o verlying peritoneum were met the liver. I then proceeded incised the peritoneum on either side of the gallbladder and carried the dissection down to the liver, thus exposing Calot triangle. I then proceeded to fully skeletonized Calot triangle until only 2 structures were visualized, cystic duct and cystic artery. Critical view of safety was obtained. The cystic duct appeared enlarged. I then proceeded to clip the cystic artery 3 times proximal and 2 times distal and transected it. I then decided to perform an intraoperative cholangiogram given that the patient had elevated liver function test with a positive MRCP from yesterday. I then grasped the gallbladder right were the cystic duct and infundibulum meet. I then made a ductotomy high on the cystic duct, and bile started reflux immediately back with lots of small stones. I suctioned the bile and the stones as they were coming out. I then placed a 14 Turkish Angiocath through the abdominal wall at the right abdominal area in line with the ductotomy with the of the cystic duct. The previously flushed cholangiocatheter was introduced to the peritoneal cavity through the angio catheter sheath, and then the catheter was directed into the cystic duct through the previously-made ductotomy. The catheter was held in place with 2 partially closed clips. Anesthesia then administered 1 mg of glucagon. I then instilled a mixture of contrast with saline, approximately 10 cc and x-ray was taken. X-ray clearly showed the left and the right hepatic ducts, the common hepatic duct, the common bile duct, but it showed a distal CBD stone and no contrast reaching the duodenum. I then proceeded to flush the CBD with saline in an attempt to pass the stone into the duodenum. I then proceeded to repeat the cholangiogram, and the findings were still the same, a distal obstructing CBD stone without contrast reaching the duodenum. At this point I decided to stop flushing the duct as the stone was stuck in the same place. The cholangiocath was removed from the peritoneal cavity along with the leonard keeping it in place. I then proceeded to transect the cystic duct at previous ductotomy site. I then suctioned within the duct and removed the remaining small stones and bile, until it was clear from any stones. I then placed a 0 Vicryl endoloop low at the cystic duct stump. I then proceeded to remove the gallbladder from the liver bed utilizing cautery. Once the gallbladder was completely off of the liver bed it was placed in the Endo-Catch bag and taken out of the peritoneal cavity through the infraumbilical incision. I then directed my attention back to the gallbladder fossa, there were some areas of oozing that were cauterized and hemostasis achieved. Given that it had some bile spillage from the cholangiogram I proceeded to serially and copiously irrigate the gallbladder fossa, under the liver, and over the liver until all effluent was clear. I then took a 2nd look at the gallbladder fossa was hemostatic. I then took a look at the cystic duct stump and the cystic artery stump, clips and endoloop were in place. This concluded the intraperitoneal portion of the operation. All counts were complete and correct. I then proceeded to remove the working ports under direct vision, no bleeding coming from the abdominal wall. The peritoneal cavity was allowed to fully desufflate. The previous fascial retention stitch was closed. All skin sites were closed with 4-0 Monocryl and Dermabond. 0.25% Marcaine was used as local anesthetic. Patient tolerated the procedure well and was transferred to PACU in stable condition. Refer to chart for cholangiogram images. Specimen: Gallbladder contents Condition Stable Disposition Still a Patient CM HAWLEY MD Sep 10, 2025 13:04
[2025-09-10] MEDS: HYDROmorphone HCL 2 MG/ML VL/or syr IV PRN (13:17)
[2025-09-10] MEDS: GABAPENTIN 300 MG CAP ONE (13:18)
[2025-09-10] MEDS: CELECOXIB 100 MG CAP ONE (13:18)
[2025-09-10] MEDS: ACETAMINOPHEN IV 100 ML IV ONE (13:18)
[2025-09-10] MEDS: IOHEXOL 300 MG/ML 100ML BOTTLE IJ ONE (13:19)
[2025-09-10] MEDS: GLUCAGON EMERG KIT 1mg/1ml ONE (13:19)
--- NOTE | 2025-09-10 14:10 | DVHPNRES ---
Progress Note Date Seen: Sep 10, 2025 Resident Creating Document: BRISEYDA CHI RESIDENT Medical Necessity Reason Pt with a Central, PICC or Fol: No Subjective Review of Systems Scotty Reza is a 40-year-old male patient who presents to the ED with chief complaint of sharp, constant epigastric/right upper quadrant abdominal pain with maximum intensity 7/10, he describes the pain started approximately six months ago which would be intermittent before, but worsened progressively in the past week. Pain worsens after eating greasy foods. Patient did get evaluated [facility] on January 2025 where they completed at abdomen and pelvis CT where he was diagnosed with questionable gastric ulcer, given pantoprazole and sucralfate which did not improve his symptoms. Denies any other associated symptoms Past medical history: Questionable peptic ulcer disease Surgical history: Inguinal hernia repair at the age of 14. He never completed any endoscopies. Family history: Noncontributory Social history: Lives in [place] with family (next of kin is ). Currently socially vapes and drinks. Denies any tobacco, alcohol and other drug abuse. Allergies: Denies Home medication: PRN Tylenol Patient seen and examined at bedside. Currently postop of cholecystectomy and cholangiogram via laparoscopy. Does present diffuse abdominal tenderness and distention. Objective vital signs Vital Sign Date Time Temp Pulse Resp B/P (MAP) Pulse Ox O2 Delivery O2 Flow Rate FiO2 09/10/25 13:17 85 16 142/94 09/10/25 12:07 100 Mask 6.0 09/10/25 12:07 100 09/10/25 12:07 97.9 97.9 Total Intake and Output 09/09/25 09/09/25 09/10/25 15:00 23:00 07:00 Intake Total 560 ml 650 ml Output Total 800 ml 1300 ml Balance -240 ml -650 ml medications Current Medications Medications Dose Ordered Sig/Michael Route Start Time Stop Time Status Last Admin Dose Admin Acetaminophen 650 mg Q6HP PRN PO 09/08/25 12:15 Hold Ondansetron HCl 4 mg Q4HP PRN IV 09/08/25 12:15 09/09/25 18:01 4 MG Ceftriaxone Sodium 50 ml @ 100 mls/hr DAILY@09 IV 09/09/25 01:15 09/09/25 09:17 100 MLS/HR Metronidazole 100 ml @ 100 mls/hr Q8HR IV 09/09/25 01:15 09/10/25 05:50 100 MLS/HR Pantoprazole Sodium 40 mg BID IV 09/09/25 10:00 09/09/25 21:53 40 MG Potassium Chloride/Dextrose/ Sod Cl 1,000 ml @ 100 mls/hr Q10H IV 09/09/25 11:15 09/10/25 00:39 100 MLS/HR Hydromorphone HCl 0.5 mg Q4HPRN PRN IV 09/09/25 12:45 09/10/25 04:46 0.5 MG Oxycodone HCl 10 mg ONCE PRN PO 09/10/25 12:15 Acetaminophen/ Hydrocodone Bitart 1 tab Q4HPRN PRN PO 09/10/25 12:45 Hold Acetaminophen/ Hydrocodone Bitart 1 tab Q4HP PRN PO 09/10/25 12:45 Hold Acetaminophen 650 mg Q6HR PO 09/10/25 18:00 Future Hold Ketorolac Tromethamine 15 mg Q8HR IV 09/10/25 14:00 09/15/25 13:59 Hydromorphone HCl 0.5 mg Q10M PRN IV 09/10/25 13:15 09/10/25 13:56 09/10/25 13:17 0.5 MG Examination Patient lying in bed, in no acute distress General: Lucid, afebrile, mucosae are moist, jaundice, conjunctivitis icteric Cardiovascular: Normal S1 and S2. No murmurs, gallops or rubs Respiratory: Normal ventilation mechanics. Clear lung sounds on auscultation Abdomen: Distended, diffuse tenderness on superficial palpation, surgical site of laparoscopy with no signs of erythema or infection,, no organomegaly, reduced bowel sounds MSK/skin: Mobilizes 4 limbs. Skin is dry and warm Neurological: Oriented in 3 spheres. No motor no sensitive deficits. Pupils are isocoric and reactive laboratory and microbiology Laboratory Tests 09/10/25 05:21 Test 09/10/25 05:21 Range/Units Serum Glucose 95 74-106 mg/dL Microbiology Date/Time Source Procedure Growth Status 09/08/25 14:41 Blood Blood Culture - Preliminary NO GROWTH AFTER 24 HOURS OF INCUBATION. Resulted Problem List/Assessment/Plan Problem List/Assessment/Plan # Acute cholecystitis with choledocholithiasis - s/p laparoscopic cholecystectomy and intraoperative cholangiogram # Sepsis due to above # Transaminitis # Pancreatitis # Obesity # Questionable gastric ulcer MRCP: Filling defect in the distal common bile duct, suspected small gallstone. Common bile duct is near the upper limits of normal in diameter. Cholelithiasis. Abdomen/Pelvis CT: Partially contracted gallbladder. No definite calcified gallstones visualized on CT, although gallstones were seen on same-day ultrasound. No definite peripancreatic inflammatory stranding to suggest acute pancreatitis, although correlation with clinical findings would be needed to exclude acute pancreatitis. Complete Gall Bladder Ultrasound: Cholelithiasis without evidence of acute cholecystitis. NPO at midnight Surgical consult: Completed laparoscopic cholecystectomy and intraoperative cholangiogram on 09/10/2025, indicated clear liquid diet after surgery Currently on IV Pantoprazole and empiric IV antibiotics (Ceftriaxone and metronidazole) # Hypokalemia Replenish Goals of care discussed with patient for over 18 minutes: Full code status Discussed plan with Dr. Rodríguez, patient and nurses: Currently on telemetry status. He is status post laparoscopic cholecystectomy and intraoperative cholangiogram which was completed on 09/10/2025, continue with empiric IV antibiotics, IV pantoprazole and started on clear liquid diet as tolerated. Plan discussed with: Patient, Other (Nurses) My Orders My Orders Orders - BRISEYDA CHI Procedure Category Date Status Time Abg W/ Co-Ox RT 09/10/25 Logged 09:32 Visit Coding STANDARD RES Billing Provider: PUJA RODRÍGUEZ MD Date of Service if different f: Sep 10, 2025 Common Visit Codes: [id number] INP/OBS CARE(HIGH) BRISEYDA CHI RESIDENT Sep 10, 2025 14:10
[2025-09-10 14:21] LABS: Base Excess -1.0 mmol/L (-2.0-3.0)
[2025-09-10] MEDS: KETOROLAC TROMETH 30 MG/ML 1ML VIAL IV SCH (15:04)
--- NOTE | 2025-09-10 15:36 | DVHCONRES ---
Date Seen: Sep 10, 2025 Resident Creating Document: DINA WARREN RESIDENT Referring Physician Dr. Amaya History of Present Illness 40-year-old male who came to the ER for generalized weakness and recurrent episodes of epigastric abdominal pain over several months, previously labeled as gastritis. Today the pain became more persistent, prompting evaluation. He reports occasional alcohol use with his last drink one week ago. No vomiting today but has had intermittent nausea. No fevers or chills. No jaundice. No chest pain or shortness of breath. Ultrasound in the ED showed multiple gallstones without wall thickening and a CBD of [address] abdomen showed a partially contracted gallbladder without definite inflammatory changes. Labs significant for leukocytosis and elevated AST/ALT/ALP. Lipase is mildly elevated but not consistent with pancreatitis criteria. Pain improved slightly with ED medications but remains symptomatic. He was given ceftriaxone and metronidazole. Past Medical History: Denies Past Surgical History: Hernia repair Family History: Non-contributory Social History: Non-smoker, occasional alcohol, denies drug use, lives at home Allergies: NKDA Medications: None reported Patient seen and examined at bedside. Underwent Laparoscopic cholecystectomy and intraoperative cholangiogram, abdominal binder in place, abdomen normoactive, laparoscopic madrigal clean, dry Family History: Diabetes mellitus G8 MOTHER Hypertension G8 MOTHER Allergies: Coded Allergies: No Known Drug Allergy (Verified Allergy, Unknown, 09/08/25) Current Medications Current Medications Medications (Trade) Dose Ordered Sig/Michael Route PRN Reason Start Time Stop Time Status Last Admin Ondansetron HCl (Zofran) 4 mg ONCE PRN IV NAUSEA / VOMITING 09/10/25 12:15 09/10/25 12:53 DC Naloxone HCl (Narcan) 0.4 mg Q10M PRN IV NARCOTIC REVERSAL 09/10/25 12:15 09/10/25 12:53 DC Flumazenil (Romazicon Injection) 0.2 mg ONCE PRN IV BENZODIAZEPINE REVERSAL 09/10/25 12:15 09/10/25 12:53 DC Hydralazine HCl (Apresoline Injection) 5 mg Q10M PRN IV SBP>160 09/10/25 12:15 09/10/25 13:06 DC Ephedrine Sulfate (ePHEDrine SULFATE) 10 mg Q10M PRN IV SBP LESS THAN 90 09/10/25 12:15 09/10/25 12:56 DC Fentanyl Citrate 25 mcg Q1HP PRN IV BREAKTHROUGH PAIN (7-10) 09/10/25 12:15 09/10/25 12:53 DC 09/10/25 12:43 Hydromorphone HCl (Dilaudid Injection) 0.5 mg Q10M PRN IV SEVERE PAIN (7-10 PAIN SCALE) 09/10/25 12:15 09/10/25 12:56 DC Oxycodone HCl 10 mg ONCE PRN PO MODERATE PAIN (4-6 PAIN SCALE) 09/10/25 12:15 Acetaminophen/ Hydrocodone Bitart ([place] 5/325MG Tab) 1 tab Q4HPRN PRN PO MODERATE PAIN (4-6 PAIN SCALE) 09/10/25 12:45 Hold Acetaminophen/ Hydrocodone Bitart ([place] 10/325MG Tab) 1 tab Q4HP PRN PO SEVERE PAIN (7-10 PAIN SCALE) 09/10/25 12:45 Hold Acetaminophen (Tylenol Tablet) 650 mg Q6HR PO 09/10/25 18:00 Future Hold Ketorolac Tromethamine (Toradol Injection) 15 mg Q8HR IV 09/10/25 14:00 09/15/25 13:59 09/10/25 15:04 Hydromorphone HCl (Dilaudid Injection) 0.5 mg Q10M PRN IV SEVERE PAIN (7-10 PAIN SCALE) 09/10/25 13:15 09/10/25 13:56 DC 09/10/25 13:17 Vital Signs Vital Signs Date Time Temp Pulse Resp B/P (MAP) Pulse Ox O2 Delivery O2 Flow Rate FiO2 09/10/25 13:45 84 16 135/90 (105) 95 09/10/25 12:19 Nasal Cannula 2.0 96 09/10/25 12:07 97.9 97.9 Physical Exam Obese male patient lying in the bed comfortably, mild acute distress General: Obese, afebrile, palor, mucosae are moist Cardiovascular: Regular S1 and S2. No murmurs, gallops or rubs. No JVD elevation. No pedal edema Respiratory: Normal B/L air entry on room air. Clear lung sounds on auscultation Abdomen: Postop, Soft, appropriately tender, nondistended, normoactive bowel sounds, no rebound tenderness, no organomegaly, no masses. Abdominal binder in place. Genitourinary: Deferred MSK/skin: Mobilizes 4 limbs. Skin is dry and warm Neurological: No motor, no sensitive deficits, normal speech. Pupils are isocoric and reactive. Psych/Mental Status: A/Ox3 Labs/Diagnostic Data Labs Test 09/10/25 14:14 09/10/25 05:21 09/09/25 18:47 09/08/25 18:10 Range/Units Blood Gas Specimen Type Arterial Blood Gas Sample Site Right radial Blood Gas Patient Temperature 37.0 Arterial Blood Date Drawn [id number] Arterial Blood pH 7.406 7.350-7.450 Arterial Blood Partial Pressure CO2 38.1 35.0-48.0 mmHg Arterial Blood Partial Pressure O2 57.1 L 83.0-108.0 mmHg Arterial Blood HCO3 23.4 21.0-28.0 mmol/L Arterial Blood Oxygen Saturation 88.8 L 94.0-98.0 % Arterial Blood Base Excess -1.0 -2.0-3.0 mmol/L Arterial Blood Oxyhemoglobin 87.3 L 94.0-98.0 % Arterial Blood Carboxyhemoglobin 1.0 0.5-1.5 % Arterial Blood Methemoglobin 0.7 0.0-1.5 % Arterial Blood Deoxyhemoglobin 11.0 H 0.0-5.0 % Michael Test Positive Blood Gas Total Hemoglobin 14.50 13.5-17.5 g/dL Blood Gas Modality Room air FiO2 % 21.0 White Blood Count 3.9 #L 4.4-10.8 10^3/uL Red Blood Count 4.60 4.5-5.90 10^6/uL Hemoglobin 13.6 13.5-17.5 g/dL Hematocrit 39.6 L 41.0-53.0 % Mean Corpuscular Volume 86.1 80.0-100.0 fL Mean Corpuscular Hemoglobin 29.5 28.0-32.0 pg Mean Corpuscular Hemoglobin Concent 34.2 32.0-36.0 g/dL Red Cell Distribution Width 13.9 11.8-14.3 % Platelet Count 374 140-450 10^3/uL Mean Platelet Volume 7.2 6.9-10.8 fL Neutrophils (%) (Auto) 50.1 37.0-80.0 % Lymphocytes (%) (Auto) 34.7 10.0-50.0 % Monocytes (%) (Auto) 10.3 0.0-12.0 % Eosinophils (%) (Auto) 4.1 0.0-7.0 % Basophils (%) (Auto) 0.8 0.0-2.0 % Neutrophils # (Auto) 1.9 1.6-8.6 10 ^3/uL Lymphocytes # (Auto) 1.3 0.4-5.4 10 ^3/uL Monocytes # (Auto) 0.4 0-1.3 10 ^3/uL Eosinophils # (Auto) 0.2 0-0.8 10 ^3/uL Basophils # (Auto) 0 0-0.2 10 ^3/uL Nucleated Red Blood Cells 0.3 % Sodium Level 143 136-145 mmol/L Potassium Level 3.3 L 3.5-5.1 mmol/L Chloride Level 103 98-107 mmol/L Carbon Dioxide Level 32 H 20-31 mmol/L Anion Gap 8 5-15 Blood Urea Nitrogen 7 L 9-23 mg/dL Creatinine 0.84 0.700-1.30 mg/dL Glomerular Filtration Rate Calc 114 >90 mL/min BUN/Creatinine Ratio 8.3 L 10.0-20.0 Serum Glucose 95 74-106 mg/dL Calcium Level 9.2 8.7-10.4 mg/dL Total Bilirubin 2.3 H 0.2-1.0 mg/dL Direct Bilirubin 1.4 H <0.3 mg/dL Aspartate Amino Transferase (AST) 223 H 13-40 U/L Alanine Aminotransferase (ALT) 590 H 7-40 U/L Alkaline Phosphatase 274 H 46-116 U/L Total Protein 6.8 5.7-8.2 g/dL Albumin 3.9 3.2-4.8 g/dL Lipase 40 12-53 U/L Prothrombin Time 11.5 9.3-11.8 sec Prothrombin Time INR 1.09 0.9-1.15 Activated Partial Thromboplast Time 25.2 24.5-34.5 SEC Urine Color Yellow Yellow Urine Clarity Clear Clear Urine pH 5.5 5.0-9.0 Urine Specific [place] 1.012 1.001-1.035 Urine Protein Negative Negative Urine Ketones Negative Negative Urine Blood Negative Negative /uL Urine Nitrite Negative Negative Urine Bilirubin Negative Negative Urine Urobilinogen Normal Negative mg/dL Urine Leukocyte Esterase Negative Negative /uL Urine RBC <1 0 - 3 /hpf Urine Microscopic WBC < 1 0-3 /HPF Urine Squamous Epithelial Cells Few <5 /hpf Urine Bacteria None seen None Seen /hpf Urine Glucose Normal Normal mg/dL Urine Opiates Screen Pos NEGATIVE Urine Fentanyl Screen Pos NEGATIVE Urine Barbiturates Screen Neg NEGATIVE Urine Phencyclidine Screen Neg NEGATIVE Urine Amphetamines Screen Neg NEGATIVE Urine Benzodiazepines Screen Neg NEGATIVE Urine Cocaine Screen Neg NEGATIVE Urine Cannabinoids Screen Neg NEGATIVE Test 09/08/25 03:00 Range/Units Hemoglobin A1c 5.5 <5.7 % A1C Plasma/Serum Blood Alcohol < 3.0 <10 mg/dL Hepatitis A IgM Antibody Negative Hepatitis B Surface Antigen Negative Negative Hepatitis B Core IgM Antibody Negative Negative Hepatitis C Antibody Negative Negative Microbiology Date/Time Source Procedure Growth Status 09/08/25 14:41 Blood Blood Culture - Preliminary NO GROWTH AFTER 48 HOURS OF INCUBATION. Resulted Assessment Acute cholecystitis with choledocholithiasis status post Laparoscopic cholecystectomy and intraoperative cholangiogram 09/10 Symptomatic cholelithiasis Sepsis secondary to above Obesity Social drinker MRCP showed Filling defect in the distal common bile duct, suspected small gallstone. Common bile duct is near the upper limits of normal in diameter.Luz lithiasis. Plan: Recommendation: Dr. Plascencia Patient is postop, underwent laparoscopic cholecystectomy and intraoperative cho langiogram. On clear liquid diet, normoactive, not passing gas Abdominal binder in place Continue IV antibiotics, IV fluids, pain control, Protonix 40 mg daily Out of the bed tomorrow Patient would benefit from ERCP as outpatient Outpatient GI follow up within the next 2-4 weeks Plan discussed with patient, at bedside in which all questions were answered Case discussed Dr. Placsencia Plan discussed with: Patient, Spouse DINA WARREN RESIDENT Sep 10, 2025 15:36
[2025-09-10] MEDS: POTASSIUM CHL 20MEQ/100ML 100 ML IV ONE (16:14)
[2025-09-10] MEDS ORDERED: ACETAMINOPHEN 325 MG TAB PO SCH (18:00)
--- NOTE | 2025-09-10 23:19 | DVHDSRES ---
Discharge Summary Date of Admission Resident Creating Document: BRISEYDA CHI RESIDENT Sep 08, 2025 at 12:09 Date of Discharge: Sep 10, 2025 Labs/Diagnostic Data: Laboratory Results Test 09/10/25 14:14 09/10/25 05:21 09/09/25 18:47 09/08/25 18:10 Blood Gas Specimen Type Arterial Blood Gas Sample Site Right radial Blood Gas Patient Temperature 37.0 Arterial Blood Date Drawn [id number] Arterial Blood pH 7.406 (7.350-7.450) Arterial Blood Partial Pressure CO2 38.1 mmHg (35.0-48.0) Arterial Blood Partial Pressure O2 57.1 mmHg (83.0-108.0) Arterial Blood HCO3 23.4 mmol/L (21.0-28.0) Arterial Blood Oxygen Saturation 88.8 % (94.0-98.0) Arterial Blood Base Excess -1.0 mmol/L (-2.0-3.0) Arterial Blood Oxyhemoglobin 87.3 % (94.0-98.0) Arterial Blood Carboxyhemoglobin 1.0 % (0.5-1.5) Arterial Blood Methemoglobin 0.7 % (0.0-1.5) Arterial Blood Deoxyhemoglobin 11.0 % (0.0-5.0) Michael Test Positive Blood Gas Total Hemoglobin 14.50 g/dL (13.5-17.5) Blood Gas Modality Room air FiO2 % 21.0 White Blood Count 3.9 10^3/uL (4.4-10.8) Red Blood Count 4.60 10^6/uL (4.5-5.90) Hemoglobin 13.6 g/dL (13.5-17.5) Hematocrit 39.6 % (41.0-53.0) Mean Corpuscular Volume 86.1 fL (80.0-100.0) Mean Corpuscular Hemoglobin 29.5 pg (28.0-32.0) Mean Corpuscular Hemoglobin Concent 34.2 g/dL (32.0-36.0) Red Cell Distribution Width 13.9 % (11.8-14.3) Platelet Count 374 10^3/uL (140-450) Mean Platelet Volume 7.2 fL (6.9-10.8) Neutrophils (%) (Auto) 50.1 % (37.0-80.0) Lymphocytes (%) (Auto) 34.7 % (10.0-50.0) Monocytes (%) (Auto) 10.3 % (0.0-12.0) Eosinophils (%) (Auto) 4.1 % (0.0-7.0) Basophils (%) (Auto) 0.8 % (0.0-2.0) Neutrophils # (Auto) 1.9 10 ^3/uL (1.6-8.6) Lymphocytes # (Auto) 1.3 10 ^3/uL (0.4-5.4) Monocytes # (Auto) 0.4 10 ^3/uL (0-1.3) Eosinophils # (Auto) 0.2 10 ^3/uL (0-0.8) Basophils # (Auto) 0 10 ^3/uL (0-0.2) Nucleated Red Blood Cells 0.3 % Sodium Level 143 mmol/L (136-145) Potassium Level 3.3 mmol/L (3.5-5.1) Chloride Level 103 mmol/L (98-107) Carbon Dioxide Level 32 mmol/L (20-31) Anion Gap 8 (5-15) Blood Urea Nitrogen 7 mg/dL (9-23) Creatinine 0.84 mg/dL (0.700-1.30) Glomerular Filtration Rate Calc 114 mL/min (>90) BUN/Creatinine Ratio 8.3 (10.0-20.0) Serum Glucose 95 mg/dL (74-106) Calcium Level 9.2 mg/dL (8.7-10.4) Total Bilirubin 2.3 mg/dL (0.2-1.0) Direct Bilirubin 1.4 mg/dL (<0.3) Aspartate Amino Transferase (AST) 223 U/L (13-40) Alanine Aminotransferase (ALT) 590 U/L (7-40) Alkaline Phosphatase 274 U/L (46-116) Total Protein 6.8 g/dL (5.7-8.2) Albumin 3.9 g/dL (3.2-4.8) Lipase 40 U/L (12-53) Prothrombin Time 11.5 sec (9.3-11.8) Prothrombin Time INR 1.09 (0.9-1.15) Activated Partial Thromboplast Time 25.2 SEC (24.5-34.5) Urine Color Yellow (Yellow) Urine Clarity Clear (Clear) Urine pH 5.5 (5.0-9.0) Urine Specific [place] 1.012 (1.001-1.035) Urine Protein Negative (Negative) Urine Ketones Negative (Negative) Urine Blood Negative /uL (Negative) Urine Nitrite Negative (Negative) Urine Bilirubin Negative (Negative) Urine Urobilinogen Normal mg/dL (Negative) Urine Leukocyte Esterase Negative /uL (Negative) Urine RBC <1 /hpf (0 - 3) Urine Microscopic WBC < 1 /HPF (0-3) Urine Squamous Epithelial Cells Few /hpf (<5) Urine Bacteria None seen /hpf (None Seen) Urine Glucose Normal mg/dL (Normal) Urine Opiates Screen Pos (NEGATIVE) Urine Fentanyl Screen Pos (NEGATIVE) Urine Barbiturates Screen Neg (NEGATIVE) Urine Phencyclidine Screen Neg (NEGATIVE) Urine Amphetamines Screen Neg (NEGATIVE) Urine Benzodiazepines Screen Neg (NEGATIVE) Urine Cocaine Screen Neg (NEGATIVE) Urine Cannabinoids Screen Neg (NEGATIVE) Test 09/08/25 03:00 Hemoglobin A1c 5.5 % A1C (<5.7) Plasma/Serum Blood Alcohol < 3.0 mg/dL (<10) Hepatitis A IgM Antibody Negative Hepatitis B Surface Antigen Negative (Negative) Hepatitis B Core IgM Antibody Negative (Negative) Hepatitis C Antibody Negative (Negative) Other Laboratory Tests 09/10/25 05:21 Brief Hx & Hospital Course: Scotty Reza is a 40-year-old male patient who presents to the ED with chief complaint of sharp, constant epigastric/right upper quadrant abdominal pain with maximum intensity 7/10, he describes the pain started approximately six months ago which would be intermittent before, but worsened progressively in the past week. Pain worsens after eating greasy foods. Patient did get evaluated [facility] on January 2025 where they completed at abdomen and pelvis CT where he was diagnosed with questionable gastric ulcer, given pantoprazole and sucralfate which did not improve his symptoms. Denies any other associated symptoms Past medical history: Questionable peptic ulcer disease Surgical history: Inguinal hernia repair at the age of 14. He never completed any endoscopies. Family history: Noncontributory Social history: Lives in [place] with family (next of kin is ). Currently socially vapes and drinks. Denies any tobacco, alcohol and other drug abuse. Allergies: Denies Home medication: PRN Tylenol Brief hospital course: Sepsis secondary to acute cholecystitis with choledocholithiasis status post laparoscopic cholecystectomy and intraoperative cholangiogram which evidence choledocholithiasis with in possibility of removal of stones. On admission patient required IV fluids, empiric IV antibiotic (ceftriaxone and metronidazole) and IV pantoprazole, completing complementary workup which included MRCP/gallbladder ultrasound showing filling defect in distal common bile duct due to suspected small gallstones. Completed. Appear with GI specialist in [facility] who agreed on transferring patient for completion ERCP. Patient hemodynamically stable, status postop, currently on clear liquid diet, in condition to be transferred to higher level of care for eventual ERCP. Was granted under optimal medical therapy, gave advice on healthy lifestyle habits, and follow up per specialist and other center. DIAGNOSIS # Acute cholecystitis with choledocholithiasis - s/p laparoscopic cholecystectomy and intraoperative cholangiogram # Sepsis due to above # Transaminitis # Pancreatitis # Obesity # Questionable gastric ulcer # Hypokalemia Goals of care discussed with patient for over 18 minutes: Full code status Discussed plan with Dr. Rodríguez, patient and nurses Condition at Discharge: Fair Final Diagnosis/Problems List # Acute cholecystitis with choledocholithiasis - s/p laparoscopic cholecystectomy and intraoperative cholangiogram # Sepsis due to above # Transaminitis # Pancreatitis # Obesity # Questionable gastric ulcer # Hypokalemia Discharge Disposition: Acute Care Facility SNF Discharge Will this Physician continue t: No Discharge Instruct/Medications Diet: Regular Activity: No Restrictions, As Tolerated Follow Up/Referral: Patient is going to be transferred to other acute care facility F/u with PCP in 7 days after discharge Medications: as per EHR No Active Prescriptions or Reported Meds Discharge Statement: "Patient was advised to return to the ER or call 911 if any headaches, dizziness, shortness of breath, chest pain, abdominal pain, bleeding, fevers, or worsening of medical condition. Patient was counseled about treatment plan, medications, possible side effects, patientverbalized understanding. All questions were answered to the best of my ability. This discharge took greater then 30 minutes in planning, reviewing documentation, counseling the patient, and discussing with other team members." ASSESSMENT ASSESSMENT Assessment # Acute cholecystitis with choledocholithiasis - s/p laparoscopic cholecystectomy and intraoperative cholangiogram # Sepsis due to above # Transaminitis # Pancreatitis # Obesity # Questionable gastric ulcer Visit Coding STANDARD RES Billing Provider: PUJA RODRÍGUEZ MD Date of Service if different f: Sep 10, 2025 Common Visit Codes: 77025-NKG/OBS DISCH DAY >30min BRISEYDA CHI RESIDENT Sep 10, 2025 23:19
== END 2025-09-10 20:43 | disposition short-term general hospital (02) | DRG 853 ==
LOC: ER 02:37 → OVERFLOW 12:09 → CENTRAL 21:00
PROVIDERS: ADMIT Internal Medicine Geriatric Medicine; ATTEND Internal Medicine Geriatric Medicine
PROC: BF522Z0 Other Imaging of Gallbladder using Fluorescing Agent, Intraoperative (ICD-10-PCS; 2025-09-10)
PROC: 0FT44ZZ Resection of Gallbladder, Percutaneous Endoscopic Approach (ICD-10-PCS; principal; 2025-09-10 09:39)
DX: A41.9 Sepsis, unspecified organism (principal); K85.90 Acute pancreatitis without necrosis or infection, unspecified; K80.42 Calculus of bile duct with acute cholecystitis without obstruction; K25.9 Gastric ulcer, unspecified as acute or chronic, without hemorrhage or perforation; E66.9 Obesity, unspecified; K21.9 Gastro-esophageal reflux disease without esophagitis; R73.9 Hyperglycemia, unspecified; R74.01 Elevation of levels of liver transaminase levels; Z68.32 Body mass index [BMI] 32.0-32.9, adult; E87.6 Hypokalemia
CPT/HCPCS: 36415; 36600; 71045; 74018; 74176; 74181; 76705; 80048; 80053; 80074; 80076; 80307; 80320; 81001; 82248; 82805; 83036; 83690; 85025; 85610; 85730; 86850; 86900; 86901; 87040; 93005; 96372; G0378; J0131; J0694; J1100; J1885; J2003; J2405; J2470; J2704; J3480; J3490; Q0162